=== PATIENT | female | born 1935 ===

== ENCOUNTER 2017-04-05 10:48 | Observation (INO) | payer MEDICARE ==
[2017-04-05 11:25] LABS: ABSOLUTE BASOPHILS # (AUTO) 0.1 10^3/uL (0.0-0.2); ABSOLUTE EOSINOPHILS # (AUTO) 0.1 10^3/uL (0.0-0.6); ABSOLUTE LYMPHOCYTES (AUTO) 1.2 10^3/uL (0.5-4.7); ABSOLUTE MONOCYTES (AUTO) 1.4 10^3/uL (0.1-1.4); ABSOLUTE NEUT (AUTO) 7.6 10^3/uL (1.7-8.2); EOSINOPHILS % (AUTO) 0.7 % (0-6); HEMOGLOBIN 13.4 g/dL (12.0-15.5); HGB HCT DIFFERENCE 0.2; LYMPHOCYTES % (AUTO) 11.7 % (13-45); MEAN CORPUSCULAR HEMOGLOBIN 27.3 pg (27.0-33.4); MEAN CORPUSCULAR HGB CONC 33.4 g/dL (32.0-36.0); MEAN CORPUSCULAR VOLUME 82 fl (80-97); MONOCYTES % (AUTO) 13.1 % (3-13); RED CELL DISTRIBUTION WIDTH 14.2 % (11.5-14.0); SEGMENTED NEUTROPHILS % (AUTO) 73.5 % (42-78); WHITE BLOOD COUNT 10.4 10^3/uL (4.0-10.5)
[2017-04-05 11:27] LABS: PROTHROMBIN TIME 12.8 SEC (11.4-15.4)
[2017-04-05 11:28] LABS: PARTIAL THROMBOPLASTIN TIME 34.5 SEC (23.5-35.8)
[2017-04-05] MEDS ORDERED: MECLIZINE HCL 25 MG TABLET PO ONE ×2 (11:29→12:16)
[2017-04-05] MEDS ORDERED: ONDANSETRON HCL INJ/PF 4 MG/2 ML SDV IV ONE (11:29)
[2017-04-05] MEDS ORDERED: ASPIRIN 325 MG TABLET PO ONE (11:31)
--- NOTE | 2017-04-05 11:34 | RADIOLOGY REPORT (SQ) ---
EXAM DESCRIPTION: CT HEAD WITHOUT COMPLETED DATE/TIME: 04/05/2017 11:23 am REASON FOR STUDY: stroke like symptoms COMPARISON: None. TECHNIQUE: Axial images acquired through the brain without intravenous contrast. Images reviewed wi th bone, brain and subdural windows. Images stored on PACS. All CT scanners at this facility use dose modulation, iterative reconstruction, and/or weight based d osing when appropriate to reduce radiation dose to as low as reasonably achievable (ALARA). [facility]: Dose Right [facility]: CareDose [facility]: Dose Right [facility]: Teradose 4D [facility]: Smart Angstro RADIATION DOSE: Up-to-date CT equipment and radiation dose reduction techniques were employed. CTDIv ol: 49.0 mGy. DLP: 881 mGy-cm.mGy. LIMITATIONS: None. FINDINGS: VENTRICLES: Prominent. CEREBRUM: No masses. No hemorrhage. No midline shift. Areas of low density in the white matter mos t likely due to chronic micro-vascular ischemic change. No evidence for acute infarction. CEREBELLUM: No masses. No hemorrhage. No alteration of density. No evidence for acute infarction. EXTRAAXIAL SPACES: Age-related involutional change. No fluid collections. No masses. ORBITS AND GLOBE: No intra- or extraconal masses. Normal contour of globe without masses. CALVARIUM: No fracture. PARANASAL SINUSES: No fluid or mucosal thickening. SOFT TISSUES: No mass or hematoma. OTHER: No other significant finding. IMPRESSION: CHRONIC CHANGES OF ATROPHY AND MICROVASCULAR ISCHEMIA. NO ACUTE PROCESS. EVIDENCE OF ACUTE STROKE: NO. COMMENT: Pertinent positive or negative findings of the imaging study reported as a CRITICAL EXAM carol RIOJAS DO at11:26 on 04/05/2017. Category of Critical Exam: Stroke protocol. TECHNICAL DOCUMENTATION: JOB ID: [id number] Quality ID # [id number]: Final reports with documentation of one or more dose reduction techniques (e.g., Au tomated exposure control, adjustment of the mA and/or kV according to patient size, use of iterative reconstruction technique) 2010 [employer]- All Rights Reserved
--- NOTE | 2017-04-05 11:39 | RADIOLOGY REPORT (SQ) ---
EXAM DESCRIPTION: CHEST SINGLE VIEW COMPLETED DATE/TIME: 04/05/2017 11:30 am REASON FOR STUDY: stroke like symptoms COMPARISON: None. EXAM PARAMETERS: NUMBER OF VIEWS: One view. TECHNIQUE: Single frontal radiographic view of the chest acquired. RADIATION DOSE: NA LIMITATIONS: None. FINDINGS: LUNGS AND PLEURA: No opacities, masses or pneumothorax. No pleural effusion. MEDIASTINUM AND HILAR STRUCTURES: No masses. Contour normal. HEART AND VASCULAR STRUCTURES: Heart normal in size. Normal vasculature. BONES: No acute findings. HARDWARE: None in the chest. OTHER: No other significant finding. IMPRESSION: NO ACUTE RADIOGRAPHIC FINDING IN THE CHEST. TECHNICAL DOCUMENTATION: JOB ID: [id number] [employer]- All Rights Reserved
[2017-04-05 11:46] LABS: ALANINE AMINOTRANSFERASE 34 U/L (9-52); ALBUMIN 3.9 g/dL (3.5-5.0); ALKALINE PHOSPHATASE 116 U/L (38-126); ANION GAP 14 (5-19); ASPARTATE AMINO TRANSFERASE 19 U/L (14-36); BILIRUBIN,DIRECT 0.4 mg/dL (0.0-0.4); BILIRUBIN,TOTAL 0.4 mg/dL (0.2-1.3); BLOOD UREA NITROGEN 18 mg/dL (7-20); CALCIUM 9.3 mg/dL (8.4-10.2); CARBON DIOXIDE 23 mmol/L (22-30); CHLORIDE 97 mmol/L (98-107); CREATINE KINASE 24 U/L (30-135); GLUCOSE 112 mg/dL (75-110); POTASSIUM 4.1 mmol/L (3.6-5.0); SODIUM 133.7 mmol/L (137-145)
--- NOTE | 2017-04-05 11:53 | ER Document Report ---
ED General - General Mode of Arrival: Wheelchair Information source: Patient - HPI Onset: This morning <BETH HESTER - Last Filed: 04/05/17 14:02> <ROBINSON RIOJAS - Last Filed: 04/05/17 18:34> - General Chief Complaint: High Blood Pressure Stated Complaint: WEAKNESS Time Seen by Provider: 04/05/17 11:05 Notes: Patient is an 82 year old female presenting to the emergency department complaining of weakness and blurry vision. Patient states that she woke up this morning and took her thyroid pill in which she proceeded to "feel funny". Patient states that she ate breakfast and then proceeded to vomit what she had eaten. Patient states that she went on a short walk with her outside their home due to her feeling dizzy and she states she was very off balanced. Patient states that she generally feels weak which is very unusual for her. Patient states that she has blurry vision in her left eye which contributes to her blurry vision bilaterally. Patient has associated symptoms of nausea and vomiting. Patients last known normal was last night. Patient states she recently had Leukemia. (BETH HESTER) - Related Data Allergies/Adverse Reactions: No Known Allergies Allergy (Verified 04/05/17 12:19) Home Medications: Current Home Medications Aspirin [Aspirin EC] 81 mg PO DAILY 04/05/17 [History] Calcium Carbonate/Vitamin D3 [Calcium 600 + Vit D Tablet] 1 tab PO DAILY [History] Levothyroxine Sodium [Synthroid 0.075 mg Tablet] 0.075 mg PO Q6AM 04/05/17 [ History] Meloxicam [Mobic] 15 mg PO DAILY 04/05/17 [History] Multivitamin [Multiple Vitamins] 1 tab PO DAILY 04/05/17 [History] Simvastatin [Zocor 40 mg Tablet] 40 mg PO QHS 04/05/17 [History] Past Medical History - General Information source: Patient, Relative - Social History Smoking Status: Never Smoker Cigarette use (# per day): No Chew tobacco use (# tins/day): No Smoking Education Provided: No Frequency of alcohol use: None <BETH HESTER - Last Filed: 04/05/17 14:02> - Social History Family History: Hypertension <ROBINSON RIOJAS - Last Filed: 04/05/17 18:34> Review of Systems - Review of Systems Constitutional: See HPI, Weakness EENT: See HPI, Blurred vision Cardiovascular: No symptoms reported Respiratory: No symptoms reported Gastrointestinal: See HPI, Nausea, Vomiting Genitourinary: No symptoms reported Female Genitourinary: No symptoms reported Musculoskeletal: Other Skin: No symptoms reported Hematologic/Lymphatic: No symptoms reported Neurological/Psychological: No symptoms reported -: Yes All other systems reviewed and negative <BETH HESTER - Last Filed: 04/05/17 14:02> Physical Exam <BETH HESTER - Last Filed: 04/05/17 14:02> <ROBINSON RIOJAS - Last Filed: 04/05/17 18:34> - Vital signs Vitals: Temp 98.5 F 04/05/17 10:50 - Notes Notes: GENERAL: Alert, interacts well. No acute distress. HEAD: Normocephalic, atraumatic. EYES: Pupils equal, round, and reactive to light. Extraocular movements intact. No evidence of diplopia or divergent gaze. No retinal detachment. ENT: Oral mucosa moist, tongue midline. NECK: Full range of motion. Supple. Trachea midline. LUNGS: Few faint crackles, no wheezes or rhonci. No respiratory distress. HEART: Regular rate and rhythm. No murmurs, gallops, or rubs. ABDOMEN: Soft, non-tender. Non-distended. Bowel sounds present in all 4 quadrants. EXTREMITIES: Moves all 4 extremities spontaneously. No edema, radial and dorsalis pedis pulses 2/4 bilaterally. No cyanosis. NEUROLOGICAL: Alert and oriented x3. Normal speech. cranial nerves II through XII grossly intact. Biceps and patellar DTRs 2+ bilaterally. [place]-Hallpike is negative. PSYCH: Normal affect, normal mood. SKIN: Warm, dry, normal turgor. No rashes or lesions noted. (BETH HESTER) Course - Laboratory Result Diagrams: 04/05/17 11:14 04/05/17 11:14 <BETH HESTER - Last Filed: 04/05/17 14:02> - Laboratory Result Diagrams: 04/05/17 11:14 04/05/17 11:14 <ROBINSON RIOJAS - Last Filed: 04/05/17 18:34> - Re-evaluation Re-evalutation: 04/05/17 14:15 CBC grossly unremarkable, coags normal, CMP shows slightly of sodium 133.7 but this is not significant, cardiac enzymes negative, urinalysis shows moderate leukocyte esterase but only trace bacteria, no symptoms of urinary tract infection at this time, will not treat asymptomatic bacteriuria. CT scan of the head shows chronic changes of atrophy and microvascular ischemia, no acute process. Chest x-ray does not show any acute process. I am concerned for the possibility of a cerebellar stroke as the patient is complaining of impaired vision however one visual acuity is checked she is actually 20/50 in her right eye and 20/40 in her left eye, patient states that her vision is worse in her left eye than her right eye but this does not bear out on objective testing. I am concerned that she may have a processing problem interfering with her vision, patient does also now admits some diplopia. Her dizziness and vomiting worsens when moving but does not appear to fatigue, is not consistent with peripheral vertigo at this time, did not improve with Antivert or Zofran. I discussed with the patient and the that I am concerned for the possibility of a central cause of this vertigo including cerebellar stroke, patient is agreeable to being admitted, case was discussed with Dr. Hong from the hospitalist service, also agrees to admit this patient for possible cerebellar stroke. (ROBINSON RIOJAS) - Vital Signs Vital signs: Temp Pulse Resp BP Pulse Ox 98.0 F 75 20 160/90 H 99 04/05/17 16:17 04/05/17 16:17 04/05/17 16:17 04/05/17 17:10 04/05/17 16:17 - Laboratory Laboratory results interpreted by me: 04/05/17 04/05/17 04/05/17 11:14 11:14 12:13 RDW 14.2 H Lymphocytes % 11.7 L Monocytes % 13.1 H Sodium 133.7 L Chloride 97 L Glucose 112 H Creatine Kinase 24 L Total Protein 6.0 L Ur Leukocyte Esterase MODERATE H - EKG Interpretation by Me Additional EKG results interpreted by me: 04/05/17 14:19 EKG shows sinus rhythm at a rate of 62, left anterior hemiblock, left axis deviation, LVH, T-wave inversions in lead II, V3 through V6, no ST segment elevations or depressions per my interpretation. (ROBINSON RIOJAS) Critical Care Note - Critical Care Note Total time excluding time spent on procedures (mins): 35 <ROBINSON RIOJAS - Last Filed: 04/05/17 18:34> Discharge <BETH HESTER - Last Filed: 04/05/17 14:02> - Discharge Admitting Provider: Hospitalist - [facility] Unit Admitted: IMCU <ROBINSON RIOJAS - Last Filed: 04/05/17 18:34> - Discharge Clinical Impression: Binocular vision disorder with diplopia, Dizziness, possible cerebellar stroke Hypertension Qualifiers: Hypertension type: essential hypertension Qualified Code(s): I10 - Essential ( primary) hypertension Condition: Fair Disposition: ADMITTED INPATIENT Scribe Attestation: 04/05/17 18:34 I personally performed the services described in the documentation, reviewed and edited the documentation which was dictated to the scribe in my presence, and it accurately records my words and actions. (ROBINSON RIOJAS) Scribe Documentation - Scribe Written by Balbir:: Balbir Bruner, 04/05/2017 12:34 acting as scribe for :: Talia <BETH HESTER - Last Filed: 04/05/17 14:02> ED NIH Stroke Scale - NIH Stroke Scale *: 1. NIH scale should be completed with appropriate accompanying assessment tools. *: 2. The NIH should reflect what the patient is capable of doing and should not be coached by the clinician. 1a. Level of Consciousness: 0=Alert;keenly responsive -: 1=Drowsy -: 2=Obtunded -: 3=Coma/unresponsive or reflex to noxious stimuli. 1a. Responses: 0 1b. Orientation Questions: a. What month is it? -: b. How old are you? -: 0=Answers both questions correctly. -: 1=Answers one question correctly or patient is intubated or has orotracheal trauma. -: 2=Answers neither question correctly. 1b. Responses: 0 1c. Response to commands: a. Open and close eyes? -: b. Media Buyer and release hand? -: Credit is given despite weakness. Demonstration of task is permitted. Substitute command if hands cannot be used. -: 0=Performs both tasks correctly -: 1=Performs one task correctly -: 2=Performs neither task correctly 1c. Responses: 0 2. Gaze: Establish eye contact and instruct patient to "Follow my finger" -: 0=Normal -: 1=Partial gaze palsy. Gaze is abnormal in one or both eyes, but where forced deviation or total gaze paresis is not present. -: 2=Forced deviation or total gaze paresis. 2. Responses: 0 3. Visual Dangelo: Sees fingers in all four quadrants. -: 0=No visual loss. -: 1=Partial hemianopsia. -: 2=Complete hemianopsia. -: 3=Bilateral hemianopsia (including Cortical blindness) 3. Responses: 0 4. Facial Movement: Instruct patient to: -: a. Show me your teeth -: b. Raise your eyebrows -: c. Close your eyes -: d. Smile -: 0=Normal symmetrical movement -: 1=Minor paralysis (flattened nasolabial fold, asymmetry on smiling). -: 2=Partial paralysis (total or near total paralysis of lower face). -: 3=Complete paralysis of upper and lower face 4. Responses: 0 5. Motor functions (left arm): Alternate sides and extend each arm with palms down (90 degrees if sitting or 45 degrees for supine). -: 0=No drift;limb holds for full 10 seconds. -: 1=Drift; limb holds but drifts down before full 10 seconds, but does not hit bed. -: 2=Some effort against gravity; limb cannot get to or maintain position. -: 3=No effort against gravity; limb falls. -: 4=No movement. -: UN=Amputation, joint fusion, explain in comments. 5. Responses (left arm): 0 5. Motor Functions (right arm): Alternate sides and extend each arm with palms down (90 degrees if sitting or 45 degrees for supine). -: 0=No drift;limb holds for full 10 seconds. -: 1=Drift; limb holds but drifts down before full 10 seconds, but does not hit bed. -: 2=Some effort against gravity; limb cannot get to or maintain position. -: 3=No effort against gravity; limb falls. -: 4=No movement. -: UN=Amputation, joint fusion, explain in comments. 5. Responses (right arm): 0 6. Motor Functions (left leg): With patient lying supine, alternate sides and extend each leg (30 degrees always while supine). -: 0=No drift, leg holds position for full 5 seconds -: 1=Drift; leg falls before full 5 seconds but does not hit bed. -: 2=Some effort against gravity, leg falls to bed but some effort against gravity. -: 3=No effort against gravity, leg falls to bed immediately. -: 4=No movement. -: UN=Amputation, joint fusion; explain in comments. 6. Responses (left leg): 0 6. Motor Functions (right leg): With patient lying supine, alternate sides and extend each leg (30 degrees always while supine). -: 0=No drift, leg holds position for full 5 seconds -: 1=Drift; leg falls before full 5 seconds but does not hit bed. -: 2=Some effort against gravity, leg falls to bed but some effort against gravity. -: 3=No effort against gravity, leg falls to bed immediately. -: 4=No movement. -: UN=Amputation, joint fusion; explain in comments. 6. Responses (right leg): 0 7. Limb Ataxia: With eyes open instruct patient to: -: a. "Touch your finger to your nose". -: b. "Touch your heel to your zarate" -: 0=Absent -: 1=Present in one limb. -: 2=Present in two limbs. -: UN=Amputation or joint fusion; explain in comments. 7. Responses: 0 8. Sensory: Test sensation using pinprick or noxious stimuli. Test as many body parts as possible. -: 0=Normal;no sensory loss -: 1=Mile to moderate sensory loss (patient feels pin prick but is less sharp on affected side). -: 2=Severe or total sensory loss. 8. Responses: 0 9. Best Language: Instruct patient to: -: a. "Describe what you see in this picture." -: b. "Name the items in this picture." -: c. "Read these sentences." -: 0=No aphasia, normal -: 1=Mild to moderate aphasia. -: 2=Severe aphasia -: 3=Mute, global aphasia, no usable speech or auditory comprehension. 9. Responses: 0 10. Articulation, Dysarthia: Instruct patient to: -: "Read these words" or "Repeat these words" -: 0=Normal -: 1=Mild to moderate; patient may slur some words but can be understood without difficulty. -: 2=Severe; patients speech so slurred as to be unintelligible in the absence of dysphasia. -: UN=Intubated or other physical barrier, explain in comments. 10. Responses: 1 11. Extinction or inattention: 0=No abnormality -: 1= Visual, tactile, auditory, spatial, or personal inattention or extinction to bilateral simulation in one or the sensory modalities. -: 2=Profound albert-inattention or albert-inattention to more than one modality; does not recognize own hand. 11. Responses: 0 Total Score: 1 <BETH HESTER - Last Filed: 04/05/17 14:02> ED Alteplase Inc/Exc Criteria - Date/Time patient last known well: Date/Time: unknown - Date/Time patient arrived in ED: _: 04/05/17 10:48 - Inclusion Criteria: 1: Patient presented to ED within 3 hours of acute ischemic stroke symptom onset ? -: No 2: Did baseline CT exclude intracranial hemorrhage and/or other risk factors? -: Yes 3: Is the age of the patient 18 years of age or greater? -: No : If any of the above questions are answered "NO" then stop, patient is not a candidate for Alteplase, : If all of the above questions are answered "YES" then continue with Exclusion Criteria. - The patient is: -: Included and is eligible to receive Alteplase. *Initiate bed placement at higher level of care* Reviewd risks & benefits of thrombolytic therapy: I have reviewed the risks and benefits of thrombolytic therapy with the patient and/or his/her family. -: Excluded and not eligible to receive Alteplase for the above exclusions. --: Yes -: Excluded and not eligible to receive Alteplase for other reasons (specify in comments): - Diagnosis of TIA: -: Patient presented with transient symptoms that are now resolved and no other neurologic findings are currently present. List symptoms in comments. -: Patient is NOT a candidate for tPA. -: Yes -: ____(put name in comment) has been consulted for admission and continued evaluation of risk factor assessment. Comment: Matt <ROBINSON RIOJAS - Last Filed: 04/05/17 18:34>
[2017-04-05 11:57] LABS: CREATINE KINASE MB 0.55 ng/mL (<4.55)
[2017-04-05 11:58] LABS: TROPONIN I < 0.012 ng/mL
[2017-04-05 12:34] LABS: AMORPHOUS SEDIMENT,URINE TRACE /HPF; APPEARANCE,URINE SLIGHTLY-CLOUDY; BILIRUBIN,URINE NEGATIVE (NEGATIVE); GLUCOSE, URINE NEGATIVE (NEGATIVE); KETONES,URINE NEGATIVE (NEGATIVE); LEUKOCYTE ESTERASE,URINE MODERATE (NEGATIVE); NITRITE,URINE NEGATIVE (NEGATIVE); PROTEIN,URINE NEGATIVE (NEGATIVE); URINE SPECIFIC GRAVITY 1.011; UROBILINOGEN,URINE NEGATIVE mg/dL (<2.0)
[2017-04-05] MEDS ORDERED: ONDANSETRON HCL INJ/PF 4 MG/2 ML SDV IV PRN (15:27)
[2017-04-05] MEDS ORDERED: MECLIZINE HCL 25 MG TABLET PO PRN (15:27)
[2017-04-05] MEDS ORDERED: HYDRALAZINE HCL INJ/PF 20 MG/1 ML SDV IV PRN (15:28)
--- NOTE | 2017-04-05 15:54 | PDOC H&P ---
History of Present Illness Admission Date/PCP: 04/05/17 14:10 History of Present Illness: JESUS PEREZ is a 82 year old white female with a past medical history significant for some sort of blood cancer, hypertension, dyslipidemia and hypothyroidism who presents to the service with acute onset of dizziness. Patient was in her usual state of health yesterday when she went to sleep and then awoke this morning with dizziness and blurry vision. Patient's thought that it would be a good idea for her to just take a walk around the house or around the yard to see if she felt better. The patient states that if she had been holding onto her that she would have fallen. The did not help. Patient came into the emergency room and her blood pressure was found to be 200 systolic. She had decreased vision in the left eye and in fact had double vision. [place]-Hallpike maneuver was done in the emergency room was negative. Patient had a negative CT scan of the head. She was given 2 doses of meclizine which did not help. She threw up in the emergency room as well whenever she tried to move. The patient has a history of some sort of blood cancer possibly leukemia. Her last chemotherapy was in September of this year. According to the patient's she was considered to be cured. She usually follows with Dr. Debbie collins in [place]. Her states that when she was initially diagnosed with the cancer, she was dizzy as well. Patient was noted to have positive leukocyte esterase in her urine in the emergency room. She is states that she has had some trouble with urinary incontinence intermittently. Past Medical History Cardiac Medical History: Reports: Hyperlipidema, Hypertension Malignancy Medical History: Reports: Leukemia - Patient is unsure about this diagnosis. Past Surgical History Past Surgical History: Reports: None Social History Information Source: Patient Lives with: Spouse/Significant other Smoking Status: Never Smoker Frequency of Alcohol Use: None Drugs: None - Advance Directive Resuscitation Status: Do Not Resuscitate Family History Family History: None Parental Family History Reviewed: Yes Children Family History Reviewed: Yes - The patient is estranged from 1 of her sons. Sibling(s) Family History Reviewed.: Yes Medication/Allergy Home Medications: Aspirin [Aspirin EC] 81 mg PO DAILY 04/05/17 Calcium Carbonate/Vitamin D3 [Calcium 600 + Vit D Tablet] 1 tab PO DAILY Levothyroxine Sodium [Synthroid 0.075 mg Tablet] 0.075 mg PO Q6AM 04/05/17 Meloxicam [Mobic] 15 mg PO DAILY 04/05/17 Multivitamin [Multiple Vitamins] 1 tab PO DAILY 04/05/17 Simvastatin [Zocor 40 mg Tablet] 40 mg PO QHS 04/05/17 Allergies/Adverse Reactions: No Known Allergies Allergy (Verified 04/05/17 12:19) Review of Systems Review of Systems: Review of systems is positive for that already listed in the HPI. In addition to this, the patient states that she usually has trouble with urinary incontinence. This is an intermittent problem. She states that if she hears running water that suddenly she cannot hold her urine. She also admits to constipation. Her last bowel movement was today. She has some chronic back pain for which she takes meloxicam. She denies diarrhea, blood in the urine, blood in stool, throwing up blood, or coughing up blood. She denies chills, chest pain, shortness of breath, fever, cough, abdominal pain, loss of appetite or being around anyone sick. The patient has had a 15 pound weight loss since her diagnosis of cancer but this has stayed stable over the last year. Physical Exam Vital Signs: Temp Pulse Resp BP Pulse Ox 98.5 F 72 16 156/66 H 98 04/05/17 10:50 04/05/17 11:00 04/05/17 14:31 04/05/17 14:31 04/05/17 14:31 GENERAL: This is a well-developed, well-nourished appearing elderly white female resting in bed currently in no acute distress. HEENT: Normocephalic atraumatic. Sclera are anicteric. Trachea is midline. Moist mucous membranes. Pupillary responses equal round and reactive to light and accommodation HEART: Regular rate and rhythm. No murmurs, rubs or gallops. LUNGS: Clear to auscultation bilaterally with equal rise and fall of the chest. ABDOMEN: Soft, nontender, nondistended with normoactive bowel sounds EXTREMETIES: No clubbing, cyanosis or edema. 2+ peripheral pulses bilaterally. Strength is 5 out of 5 in the upper extremities bilaterally. Strength is 4 out of 5 on the right lower extremity and 3+ out of 5 on the left. Patient seems to have difficulty keeping this leg lifted against gravity. 5 out of 5 in the hip flexors NEURO: [Awake, alert and oriented 3. patient has difficulty repeating the phrase "no if and's or but's". During the rest of my interview, the patient speech is fluent, However. Pupillary response is equal round and reactive to light and accommodation. The patient has past pointing on exam. Rapid alternating movements is slow. She has a right flattened Nasolabial fold with a slight droop on this side. Her tongue deviates to the left. The patient currently sees double out of her left eye. When her hand covers the right eye the patient sees double of most objects that are in the room peripheral vision seems to be relatively intact. There is no nystagmus on exam Results Impressions: Chest X-Ray 04/05/17 11:15 IMPRESSION: NO ACUTE RADIOGRAPHIC FINDING IN THE CHEST. Head CT 04/05/17 11:15 IMPRESSION: CHRONIC CHANGES OF ATROPHY AND MICROVASCULAR ISCHEMIA. NO ACUTE PROCESS. EVIDENCE OF ACUTE STROKE: NO. Assessment & Plan - Diagnosis (1) Hypertensive emergency Plan: Patient's blood pressure was 200 systolic. Repeat blood pressures were lower down in the 180s. At the bedside repeat blood pressure was 156 systolic. This is with no intervention. Because there is a potential for stroke and would allow permissive hypertension. Hydralazine is written for any blood pressures over 190. Patient was removed from her blood pressure medications almost a year ago because of interaction with her chemotherapy, as per her 's report. (2) Stroke Plan: Possible stroke. Patient presents with dizziness and diplopia. Will obtain MRI of the brain to rule out posterior stroke. Patient certainly has concerning exam findings. Continue daily aspirin for now. (3) Hypothyroidism Plan: Continue home medications. (4) Binocular vision disorder with diplopia Plan: Possibly secondary to stroke. Continue to monitor. (5) Dizziness Plan: As needed meclizine is available. As well as as needed Zofran for associated vomiting. This could be related to an underlying stroke. Other possibilities in the differential include vertigo labyrinthitis. However, these diagnoses do not explain the physical exam findings and I am seeing at the bedside. (6) UTI (urinary tract infection) Plan: Cultures pending. Patient has no white count but she does have leukocyte esterase. - Time Time Spent: 50 to 70 Minutes Anticipated discharge: Home
[2017-04-05] MEDS: NORMAL SALINE 1000 ML 1,000 ML IV PRN (18:09)
[2017-04-05] MEDS: SIMVASTATIN 40 MG TABLET PO SCH (22:40)
[2017-04-06 04:49] LABS: HEMATOCRIT 37.7 % (36.0-47.0); HEMOGLOBIN 12.6 g/dL (12.0-15.5); HGB HCT DIFFERENCE 0.1; MEAN CORPUSCULAR HEMOGLOBIN 27.7 pg (27.0-33.4); MEAN CORPUSCULAR HGB CONC 33.4 g/dL (32.0-36.0); MEAN CORPUSCULAR VOLUME 83 fl (80-97); RED BLOOD COUNT 4.56 10^6/uL (3.72-5.28); RED CELL DISTRIBUTION WIDTH 14.6 % (11.5-14.0); WHITE BLOOD COUNT 9.7 10^3/uL (4.0-10.5)
[2017-04-06 05:08] LABS: BLOOD UREA NITROGEN 15 mg/dL (7-20); CALCIUM 9.3 mg/dL (8.4-10.2); CARBON DIOXIDE 24 mmol/L (22-30); CHLORIDE 101 mmol/L (98-107); CREATININE RESULT 0.75 mg/dL (0.52-1.25); GLUCOSE 79 mg/dL (75-110); MAGNESIUM 1.8 mg/dL (1.6-2.3); POTASSIUM 4.3 mmol/L (3.6-5.0)
[2017-04-06 05:11] LABS: ANION GAP 12 (5-19); SODIUM 136.8 mmol/L (137-145)
[2017-04-06] MEDS: LEVOTHYROXINE SODIUM 0.075 MG TABLET PO SCH (06:08)
--- NOTE | 2017-04-06 09:01 | RADIOLOGY REPORT (SQ) ---
EXAM DESCRIPTION: MRI HEAD WITHOUT; MRA HEAD WITHOUT COMPLETED DATE/TIME: 04/05/2017 5:47 pm REASON FOR STUDY: possible stroke COMPARISON: CT scan 04/05/2017 TECHNIQUE: Multiplanar imaging includes non-contrasted T1, T2, FLAIR, and diffusion with ADC map seq uences. Images stored on PACS. LIMITATIONS: None. FINDINGS: ANATOMY: No anomalies. Normal vascular flow voids. Pituitary fossa normal. CSF SPACES: Atrophy induced prominence of ventricles and CSF spaces. CEREBRUM: High signal intensity lesions scattered throughout the white matter on FLAIR imaging with d istribution suggesting micro-vascular ischemic changes. No evidence of hemorrhage, mass, or extraaxi al fluid collection. POSTERIOR FOSSA: No signal alteration. No hemorrhage. No edema, masses or mass effect. Internal cesar tory canals, cerebello-pontine angles, mastoids normal. DIFFUSION IMAGING: Negative for acute or sub-acute infarction. ORBITS: No masses. Globes normal. PARANASAL SINUSES: Mild chronic sinus disease. OTHER: No other significant finding. TECHNIQUE: Axial 3-D ucxq-pr-pzgsdq acquisition imaging performed through the brain in the area of the [place]. Images reformatted using 3-D MIPS. FINDINGS: SOURCE IMAGES: No unexpected findings on source images. No large masses. 3-D MIP: No aneurysm. No occlusions. No significant stenosis. OTHER: No other significant finding. IMPRESSION: NORMAL MRA OF THE [place]. IMPRESSION: ATROPHY AND CHRONIC MICRO-VASCULAR ISCHEMIC CHANGES. OTHERWISE NORMAL MRI OF THE BRAIN W ITHOUT INTRAVENOUS GADOLINIUM CONTRAST. EVIDENCE OF ACUTE STROKE: NO. TECHNICAL DOCUMENTATION: JOB ID: [id number] [employer]- All Rights Reserved
--- NOTE | 2017-04-06 09:01 | RADIOLOGY REPORT (SQ) ---
EXAM DESCRIPTION: MRI HEAD WITHOUT; MRA HEAD WITHOUT COMPLETED DATE/TIME: 04/05/2017 5:47 pm REASON FOR STUDY: possible stroke COMPARISON: CT scan 04/05/2017 TECHNIQUE: Multiplanar imaging includes non-contrasted T1, T2, FLAIR, and diffusion with ADC map seq uences. Images stored on PACS. LIMITATIONS: None. FINDINGS: ANATOMY: No anomalies. Normal vascular flow voids. Pituitary fossa normal. CSF SPACES: Atrophy induced prominence of ventricles and CSF spaces. CEREBRUM: High signal intensity lesions scattered throughout the white matter on FLAIR imaging with d istribution suggesting micro-vascular ischemic changes. No evidence of hemorrhage, mass, or extraaxi al fluid collection. POSTERIOR FOSSA: No signal alteration. No hemorrhage. No edema, masses or mass effect. Internal cesar tory canals, cerebello-pontine angles, mastoids normal. DIFFUSION IMAGING: Negative for acute or sub-acute infarction. ORBITS: No masses. Globes normal. PARANASAL SINUSES: Mild chronic sinus disease. OTHER: No other significant finding. TECHNIQUE: Axial 3-D unky-ur-kjvtho acquisition imaging performed through the brain in the area of the [place]. Images reformatted using 3-D MIPS. FINDINGS: SOURCE IMAGES: No unexpected findings on source images. No large masses. 3-D MIP: No aneurysm. No occlusions. No significant stenosis. OTHER: No other significant finding. IMPRESSION: NORMAL MRA OF THE [place]. IMPRESSION: ATROPHY AND CHRONIC MICRO-VASCULAR ISCHEMIC CHANGES. OTHERWISE NORMAL MRI OF THE BRAIN W ITHOUT INTRAVENOUS GADOLINIUM CONTRAST. EVIDENCE OF ACUTE STROKE: NO. TECHNICAL DOCUMENTATION: JOB ID: [id number] [employer]- All Rights Reserved
--- NOTE | 2017-04-06 09:15 | EKG REPORT ---
SEVERITY:- ABNORMAL ECG - SINUS RHYTHM PROBABLE LEFT ATRIAL ABNORMALITY LEFT AXIS DEVIATION LVH WITH SECONDARY REPOLARIZATION ABNORMALITY ANTERIOR Q WAVES, POSSIBLY DUE TO LVH BORDERLINE PROLONGED QT INTERVAL : Confirmed by: Migdalia Zelaya 06-Apr-2017 09:15:05
--- NOTE | 2017-04-06 09:20 | Physician Advisory Note ---
Physician Advisor ProgressNote .: Pursuant to the plan for Sylwia Jeter, I have reviewed the medical record for this patient. Physician Advisor Statement: Very nice documentation of medical decision-making, concerns for CVA. Please consider documenting, if you agree: 1. ? - "Acute Lt/Rt-sided thrombotic [or embolic, or other etiology] ___ artery * CVA with cerebral infarction, with Rt [dominant or nondominant side?] facial droop, Lt eye diplopia, ..., [resolved or improved or persistent] " *Ant/middle/post cerebral , sup cerebellar, or ant/post inf cerebellar artery? 2. "Hypertensive emergency, causing [specific sx, or 'CVA']" - vs - "CVA [as above] w/resulting hypertensive urgency" [i.e. sx caused by CVA rather than by HTN] 3. "Acute hyponatemia, likely due to " 4. Does pt have bacteriuria that needs no tx, or UTI that needs tx? Status: Approp'ly Obs to start given uncertainty of dx/course initially. Medicare pt, has stayed 1MN now. If unsafe for d/c today, please document clinical issues/concerns, and may change to Inpatient status. Thanks! CK
[2017-04-06] MEDS: NORMAL SALINE 1000 ML 1,000 ML IV PRN ×2 (09:48→23:36)
[2017-04-06] MEDS: ENOXAPARIN SODIUM INJ 40 MG/0.4 ML DISP.SYRIN SUBCUT SCH (09:48)
[2017-04-06] MEDS: ASPIRIN 81 MG TABLET, ENT COATED PO SCH (09:48)
--- NOTE | 2017-04-06 16:47 | PDOC PROGRESS REPORT ---
Subjective Progress Note for:: 04/06/17 Subjective:: This is a follow-up visit for strokelike symptoms. Patient has CT of the head on admission which was negative. She also had an MRI overnight which was also negative for an acute stroke. The patient's dizziness has completely resolved. She tells me her double vision has resolved as well. She does no longer sees things moving across the wall. The patient states on my way out of the room that she began seeing double again. She tells me that she sees to clocks on the wall. 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 Physical Exam Vital Signs: Temp Pulse Resp BP Pulse Ox 98.2 F 78 16 150/62 H 95 04/06/17 11:42 04/06/17 14:00 04/06/17 12:00 04/06/17 12:00 04/06/17 12:00 Intake & Output 04/05/17 04/06/17 04/07/17 06:59 06:59 06:59 Intake Total 1000 Output Total 450 Balance 550 Weight 50.2 kg GENERAL: This is a well-developed, well-nourished appearing elderly white female resting in bed currently in no acute distress. HEART: Regular rate and rhythm. No murmurs, rubs or gallops. LUNGS: Clear to auscultation bilaterally with equal rise and fall of the chest. ABDOMEN: Soft, nontender, nondistended with normoactive bowel sounds EXTREMETIES: No clubbing, cyanosis or edema. 2+ peripheral pulses bilaterally. NEURO: Awake, alert and oriented 3. There is no nystagmus on exam. Results Laboratory Results: 04/06/17 04:12 04/06/17 04:12 04/06/17 04/06/17 04:12 04:12 WBC 9.7 RBC 4.56 Hgb 12.6 Hct 37.7 MCV 83 MCH 27.7 MCHC 33.4 RDW 14.6 H Plt Count 249 Sodium 136.8 L Potassium 4.3 Chloride 101 Carbon Dioxide 24 Anion Gap 12 BUN 15 Creatinine 0.75 Est GFR ( Amer) > 60 Est GFR (Non-Af Amer) > 60 Glucose 79 Calcium 9.3 Magnesium 1.8 Impressions: Brain MRI with MRA 04/05/17 00:00 IMPRESSION: ATROPHY AND CHRONIC MICRO-VASCULAR ISCHEMIC CHANGES. OTHERWISE NORMAL MRI OF THE BRAIN WITHOUT INTRAVENOUS GADOLINIUM CONTRAST. EVIDENCE OF ACUTE STROKE: NO. Head MRI 04/05/17 00:00 IMPRESSION: ATROPHY AND CHRONIC MICRO-VASCULAR ISCHEMIC CHANGES. OTHERWISE NORMAL MRI OF THE BRAIN WITHOUT INTRAVENOUS GADOLINIUM CONTRAST. EVIDENCE OF ACUTE STROKE: NO. Chest X-Ray 04/05/17 11:15 IMPRESSION: NO ACUTE RADIOGRAPHIC FINDING IN THE CHEST. Head CT 04/05/17 11:15 IMPRESSION: CHRONIC CHANGES OF ATROPHY AND MICROVASCULAR ISCHEMIA. NO ACUTE PROCESS. EVIDENCE OF ACUTE STROKE: NO. Assessment & Plan - Diagnosis (1) Hypertensive emergency Plan: Patient's blood pressure was 200 systolic. Repeat blood pressures were lower down in the 180s. At the bedside repeat blood pressure was 156 systolic. This is with no intervention. Blood pressures today have been in the 150s. She had been on benazepril in the past. I will restart her on this again at 10 mg. The goals will be to control the patient's blood pressure and to continue to bring it down over the next couple of weeks with her primary care physician. (2) Stroke Plan: Possible stroke. This is been ruled out with both a CT and MRI of the head. Defer cardiac echo and carotid Dopplers at this point. (3) Hypothyroidism Plan: Continue home medications. (4) Binocular vision disorder with diplopia Plan: Stroke has been ruled out. This certainly could have occurred secondary to hypertensive emergency. Ophthalmology has been notified. They have agreed to come and see her in-house. (5) Dizziness Plan: This is resolved (6) UTI (urinary tract infection) Plan: Cultures pending. Patient has no white count but she does have leukocyte esterase. - Time Time Spent with patient: 15-24 minutes Anticipated discharge: Home Within: within 24 hours
[2017-04-06] MEDS: SIMVASTATIN 40 MG TABLET PO SCH (23:30)
[2017-04-07] MEDS: LEVOTHYROXINE SODIUM 0.075 MG TABLET PO SCH (05:38)
[2017-04-07] MEDS: BENAZEPRIL HCL 10 MG TABLET PO SCH (09:50)
[2017-04-07] MEDS: ASPIRIN 81 MG TABLET, ENT COATED PO SCH (09:50)
[2017-04-07] MEDS: ENOXAPARIN SODIUM INJ 40 MG/0.4 ML DISP.SYRIN SUBCUT SCH (09:50)
[2017-04-07] MEDS ORDERED: LORAZEPAM 0.5 MG TABLET PO ONE (10:25)
--- NOTE | 2017-04-07 11:10 | PDOC PROGRESS REPORT ---
Subjective Progress Note for:: 04/07/17 Subjective:: Complains of nausea. Physical Exam Vital Signs: Temp Pulse Resp BP Pulse Ox 98.0 F 70 18 180/75 H 95 04/07/17 08:18 04/07/17 08:18 04/07/17 08:18 04/07/17 08:18 04/07/17 08:18 Intake & Output 04/06/17 04/07/17 04/08/17 06:59 06:59 06:59 Intake Total 1000 2501 Output Total 450 2350 Balance 550 151 Weight 50.2 kg 50.9 kg General appearance: PRESENT: no acute distress Eye exam: PRESENT: conjunctiva pink. ABSENT: scleral icterus Ear exam: PRESENT: normal external ear exam Mouth exam: PRESENT: moist, tongue midline Neck exam: ABSENT: JVD Respiratory exam: PRESENT: clear to auscultation tenisha. ABSENT: rales, rhonchi, wheezes Cardiovascular exam: PRESENT: RRR. ABSENT: diastolic murmur, rubs, systolic murmur GI/Abdominal exam: PRESENT: normal bowel sounds, soft. ABSENT: distended, guarding, mass, organolmegaly, rebound, tenderness Extremities exam: ABSENT: calf tenderness, clubbing, pedal edema Neurological exam: PRESENT: alert, awake, oriented to person, oriented to place , oriented to time, oriented to situation, CN II-XII grossly intact. ABSENT: motor sensory deficit Psychiatric exam: PRESENT: anxious Skin exam: PRESENT: dry, intact, warm. ABSENT: cyanosis, rash Results Laboratory Results: 04/06/17 04:12 04/06/17 04:12 Impressions: Brain MRI with MRA 04/05/17 00:00 IMPRESSION: ATROPHY AND CHRONIC MICRO-VASCULAR ISCHEMIC CHANGES. OTHERWISE NORMAL MRI OF THE BRAIN WITHOUT INTRAVENOUS GADOLINIUM CONTRAST. EVIDENCE OF ACUTE STROKE: NO. Head MRI 04/05/17 00:00 IMPRESSION: ATROPHY AND CHRONIC MICRO-VASCULAR ISCHEMIC CHANGES. OTHERWISE NORMAL MRI OF THE BRAIN WITHOUT INTRAVENOUS GADOLINIUM CONTRAST. EVIDENCE OF ACUTE STROKE: NO. Chest X-Ray 04/05/17 11:15 IMPRESSION: NO ACUTE RADIOGRAPHIC FINDING IN THE CHEST. Head CT 04/05/17 11:15 IMPRESSION: CHRONIC CHANGES OF ATROPHY AND MICROVASCULAR ISCHEMIA. NO ACUTE PROCESS. EVIDENCE OF ACUTE STROKE: NO. Assessment & Plan - Diagnosis (1) Binocular vision disorder with diplopia Is this a current diagnosis for this admission?: Yes Plan: There was concern that this may represent a CVA. The patient however has had resolution of most likely related to her hypertensive emergency. (2) Hypertensive emergency Is this a current diagnosis for this admission?: Yes Plan: Patient's blood pressure still elevated. She required IV hydralazine earlier this morning. Will ask nursing staff to do orthostatics with a manual blood pressure cuff. (3) Hypothyroidism Is this a current diagnosis for this admission?: Yes (4) Anxiety Is this a current diagnosis for this admission?: Yes Plan: Patient will be given Ativan 1. - Time Time Spent with patient: 15-24 minutes - Plan Summary Plan Summary: If her blood pressure improves we may be able to discharge her later today.
[2017-04-07] MEDS: SIMVASTATIN 40 MG TABLET PO SCH (22:21)
[2017-04-08 05:21] LABS: ANION GAP 12 (5-19); BLOOD UREA NITROGEN 19 mg/dL (7-20); CALCIUM 9.5 mg/dL (8.4-10.2); CARBON DIOXIDE 25 mmol/L (22-30); CHLORIDE 100 mmol/L (98-107); GLUCOSE 106 mg/dL (75-110); POTASSIUM 3.8 mmol/L (3.6-5.0); SODIUM 136.8 mmol/L (137-145)
[2017-04-08] MEDS: LEVOTHYROXINE SODIUM 0.075 MG TABLET PO SCH (06:48)
[2017-04-08] MEDS: BENAZEPRIL HCL 10 MG TABLET PO SCH (09:59)
[2017-04-08] MEDS: ASPIRIN 81 MG TABLET, ENT COATED PO SCH (10:00)
[2017-04-08] MEDS: ENOXAPARIN SODIUM INJ 40 MG/0.4 ML DISP.SYRIN SUBCUT SCH (10:00)
[2017-04-08 10:22] VITALS: BP 148/67
--- NOTE | 2017-04-08 15:57 | PDOC DISCHARGE SUMMARY ---
General - Admit/Disc Date/PCP Admission Date/Primary Care Provider: 04/05/17 14:10 Discharge Date: 04/08/17 - Discharge Diagnosis (1) Binocular vision disorder with diplopia Is this a current diagnosis for this admission?: Yes Summary: Probably secondary to hypertensive emergency. Scans negative for acute CVA (2) Hypertensive emergency Is this a current diagnosis for this admission?: Yes (3) Hypothyroidism Is this a current diagnosis for this admission?: Yes (4) Anxiety Is this a current diagnosis for this admission?: Yes - Additional Information Resuscitation Status: Do Not Resuscitate Discharge Diet: Cardiac Discharge Activity: Activity As Tolerated Home Medications: Aspirin [Aspirin EC] 81 mg PO DAILY 04/05/17 Calcium Carbonate/Vitamin D3 [Calcium 600 + Vit D Tablet] 1 tab PO DAILY Levothyroxine Sodium [Synthroid 0.075 mg Tablet] 0.075 mg PO Q6AM 04/05/17 Meloxicam [Mobic] 15 mg PO DAILY 04/05/17 Multivitamin [Multiple Vitamins] 1 tab PO DAILY 04/05/17 Simvastatin [Zocor 40 mg Tablet] 40 mg PO QHS 04/05/17 Benazepril HCl [Lotensin 10 mg Tablet] 10 mg PO DAILY #30 tablet 04/08/17 History of Present Illness History of Present Illness: JESUS PEREZ is a 82 year old female with a history of hypertension and hypothyroidism who presented with dizziness. Patient reports the day prior to sleep she was having trouble to sleep and felt dizzy and also had blurred vision. The patient continued to have problems and came to the emergency room she was found to have elevated blood pressure over 200/128. The patient did have some questionable double vision. Patient had a negative CT scan of her head and patient was admitted for hypertensive emergency and possible acute CVA. Hospital Course Hospital Course: 82-year-old female who presented with double vision and dizziness. She was found to have hypertensive emergency and there was some initial concern that she may have had a CVA given her symptoms. Patient had a head CT that showed no acute event and MRI also showed no acute event. All of her symptoms resolved with control of her blood pressure. The patient's blood pressure is improved and she has had no further problems. Her other medical problems all were stable during this hospitalization. Physical Exam Vital Signs: Temp Pulse Resp BP Pulse Ox 98.6 F 73 18 148/67 H 97 04/08/17 10:20 04/08/17 10:20 04/08/17 10:20 04/08/17 10:20 04/08/17 10:20 Intake & Output 04/07/17 04/08/17 04/09/17 06:59 06:59 06:59 Intake Total 2501 774 Output Total 2350 Balance 151 774 Weight 50.9 kg 50.8 kg General appearance: PRESENT: no acute distress Eye exam: PRESENT: conjunctiva pink. ABSENT: scleral icterus Mouth exam: PRESENT: moist, tongue midline Neck exam: ABSENT: JVD Respiratory exam: PRESENT: clear to auscultation tenisha. ABSENT: rales, rhonchi, wheezes Cardiovascular exam: PRESENT: RRR. ABSENT: diastolic murmur, rubs, systolic murmur GI/Abdominal exam: PRESENT: normal bowel sounds, soft. ABSENT: distended, guarding, mass, organolmegaly, rebound, tenderness Extremities exam: ABSENT: calf tenderness, clubbing, pedal edema Neurological exam: PRESENT: alert, awake, oriented to person, oriented to place , oriented to time, oriented to situation, CN II-XII grossly intact. ABSENT: motor sensory deficit Psychiatric exam: PRESENT: appropriate affect Skin exam: PRESENT: dry, intact, warm. ABSENT: cyanosis, rash Results Laboratory Results: 04/06/17 04:12 04/08/17 03:48 04/08/17 03:48 Sodium 136.8 L Potassium 3.8 Chloride 100 Carbon Dioxide 25 Anion Gap 12 BUN 19 Creatinine 1.00 Est GFR ( Amer) > 60 Est GFR (Non-Af Amer) 53 L Glucose 106 Calcium 9.5 Impressions: Brain MRI with MRA 04/05/17 00:00 IMPRESSION: ATROPHY AND CHRONIC MICRO-VASCULAR ISCHEMIC CHANGES. OTHERWISE NORMAL MRI OF THE BRAIN WITHOUT INTRAVENOUS GADOLINIUM CONTRAST. EVIDENCE OF ACUTE STROKE: NO. Head MRI 04/05/17 00:00 IMPRESSION: ATROPHY AND CHRONIC MICRO-VASCULAR ISCHEMIC CHANGES. OTHERWISE NORMAL MRI OF THE BRAIN WITHOUT INTRAVENOUS GADOLINIUM CONTRAST. EVIDENCE OF ACUTE STROKE: NO. Chest X-Ray 04/05/17 11:15 IMPRESSION: NO ACUTE RADIOGRAPHIC FINDING IN THE CHEST. Head CT 04/05/17 11:15 IMPRESSION: CHRONIC CHANGES OF ATROPHY AND MICROVASCULAR ISCHEMIA. NO ACUTE PROCESS. EVIDENCE OF ACUTE STROKE: NO. Qualifiers PATEINT BEING DISCHARGED WITH ANY OF THE FOLLOWING DIAGNOSIS?: No Plan Discharge Plan: Patient is discharged home. Follow with primary care in 1-2 weeks. Time Spent: Greater than 30 Minutes
== END 2017-04-08 10:43 | disposition home or self-care (01) ==
LOC: ER 10:48 → INTOOBSV 14:10 → EH 14:10 → 3N 15:45
PROVIDERS: ADMIT Emergency Medicine; ATTEND Emergency Medicine
DX: I16.1 Hypertensive emergency (principal); H51.9 Unspecified disorder of binocular movement; H53.2 Diplopia; F41.9 Anxiety disorder, unspecified; E03.9 Hypothyroidism, unspecified; R32 Unspecified urinary incontinence; M54.9 Dorsalgia, unspecified; G89.29 Other chronic pain; K59.00 Constipation, unspecified; Z66 Do not resuscitate; R11.2 Nausea with vomiting, unspecified; Z79.899 Other long term (current) drug therapy; Z79.82 Long term (current) use of aspirin; Z92.21 Personal history of antineoplastic chemotherapy; Z85.6 Personal history of leukemia
CPT/HCPCS: 93005; 99291; 96374; 36415 ×3; 87086; 82553; 82550; 83735; 85025; 85027; 85610; 85730; 80048 ×2; 80053; 81001; 84484; 70551; 70544; 71010; 70450; 93010; 97163; 97167; G0378 ×4; A9270 ×14; J0360; J1650 ×2; J2405 ×2; J7030 ×2; G8978; G8979; G8980; G8987; G8988; J3490